=== PATIENT | male | born 1980 | race Caucasian/White ===

== ENCOUNTER 2018-01-30 23:21 | Emergency (ER) | payer SELFPAY ==
[2018-01-30 23:22] VITALS: BP 108/71; PULSE 77; RESP 18; TEMP 36.3; O2SAT 100; BMI 22.4
--- NOTE | 2018-01-30 23:42 | ED.DCSUM_ITS ---
- ER Visit Summary Date of Service: 01/30/18 Chief Complaint: Dog bites History of Present Illness: The patient is a 37 M presenting with multiple dog bites to his bilateral arms. Patient was trying to break up a fight with between 2 dogs. He states one dog was his and the other was his friends dog. Both dogs have their shots. He does not recall his last tetanus immunization. Physical Examination: Vitals are stable. Patient is afebrile. Alert no acute distress. HEENT exam is unremarkable. Neck is supple. Lungs are clear and equal bilaterally. Heart is regular rate and rhythm. Abdomen is soft nontender nondistended. Extremities multiple lacerations bilateral upper extremities. Right upper extremity: superficial abrasion to distal middle finger; 2.5 cm laceration to distal ring finger. Tendon function intact. Normal cap refill Left upper extremity: abrasion to index and ring finger, dorsal wrist: 2.5 cm lac, 2 cm lac, 0.5 cm lac x2. volar forearm 1.5 cm lac, 1 cm lac; dorsal forearm 1 cm lac x2; volar wrist 1 cm lac x3. Tendon function intact. AFROM. Normal cap refill Skin is warm and dry. No focal neurologic deficit. Remainder of exam is unremarkable. Emergency Department Course and Treatment: Patient is given tetanus IM. Lacerations were copiously irrigated with saline. Anesthetized with lidocaine locally. Digital block right ring finger. Lacerations were repaired. Total of 4, 4-0 simple sutures right ring finger. Total of 19, 5-0 simple sutures left upper extremity. Left upper extremity: 2.5 cm dorsal wrist 4 sutures, 2 cm dorsal wrist 3 sutures; 0.5 cm ?2 dorsal wrist-1 suture each; 1.5 cm volar forearm 2 sutures; 1 cm volar forearm 2 sutures; 1 cm dorsal forearm ?2, one suture each; 3?1 cm volar wrist, 4 sutures. He is given a prescription for Bactrim and clindamycin secondary to Augmentin allergy. He is advised to watch closely for signs of infection. Advised wound care instructions. Advised to return to the ED if worsening complaints. Disposition: Discharge home Impression: Multiple dog bite, laceration repair This note was generated with [employer] dictation software. It may contain incorrect words, spelling, and punctuation that were not noted in review of the chart prior to signing ED Disposition - Plan for ED Patient: Disposition: Home or Assisted Living Chief Complaint: Bite Instructions: ED Bite Dog Prescriptions: Smz/Tmp Ds [Bactrim Ds] 1 tablet PO BID #14 tablet Clindamycin [Cleocin] 300 mg PO 4X/DAY #80 capsule Referrals: NOT,DEFINED [NON-STAFF] -
[2018-01-31] MEDS: Diphth,Pertuss(Acell),Tet Vac 0.5 ML Vial IM (00:15)
--- NOTE | 2018-01-31 00:37 | ED.RN ---
PT WITH SMALL LACERATIONS AND PUNCTURE WOUNDS PRESENT THROUGHOUT LEFT FORE AND HAND. TOTAL NUMBER OF STITCHES IN THAT ARM IS 19. PT WITH MINIMAL BLOODY DRAINAGE. PT REPORTS BREAKING UP DOG FIGHT. RIGHT HAND WITH TWO LACERATIONS. THE FIRST LACERATION IS ON THE 3RD FINGER MEASURING APPROX. 3CM. SECOND ONE IS APPROX. 2CM. PT AWAITING SUTURING BY DR. CORREIA.
--- NOTE | 2018-01-31 01:05 | ED.DEP ---
ED Disposition - Plan for ED Patient: Chief Complaint: Bite Instructions: ED Bite Dog Prescriptions: Smz/Tmp Ds [Bactrim Ds] 1 tablet PO BID #14 tablet Clindamycin [Cleocin] 300 mg PO 4X/DAY #80 capsule Referrals: NOT,DEFINED [NON-STAFF] -
[2018-01-31] MEDS: Smz/Tmp Ds Tablet 1 TABLET PO (01:23)
[2018-01-31] MEDS: Clindamycin HCl 150 MG Capsule 300 MG PO (01:23)
[2018-01-31 01:40] VITALS: PULSE 68; RESP 17; O2SAT 95
--- NOTE | 2018-01-31 01:42 | ED.RN ---
THIS RN CLEANED PT WOUND AND PLACED DRESSING THROUGHOUT. MULTIPLE PUNCTURES COVERED WITH BANDAIDS, PT GIVEN WRITTEN AND VERBAL DISCHARGE INSTRUCTIONS AND PT VERBALIZES UNDERSTANDING. PT EDUCATED ON ANTIBIOTICS AND FOLLOW UP AND HOW TO MAINTAIN WOUND CARE AT HOME. PT AMBULATES OUT OF DEPT WITH FRIEND.
== END 2018-01-31 01:46 | disposition home or self-care (01) ==
PROVIDERS: Emergency Provider Emergency Medicine
DX: S61.214A Laceration without foreign body of right ring finger without damage to nail, initial encounter (principal); S60.412A Abrasion of right middle finger, initial encounter; S60.411A Abrasion of left index finger, initial encounter; S60.415A Abrasion of left ring finger, initial encounter; S61.512A Laceration without foreign body of left wrist, initial encounter; S51.812A Laceration without foreign body of left forearm, initial encounter; W54.0XXA Bitten by dog, initial encounter; Y93.9 Activity, unspecified; Y92.9 Unspecified place or not applicable
CPT/HCPCS: 12005; 90471; 90715; 99284